=== PATIENT | male | born 1950 | race Caucasian/White ===

== ENCOUNTER 2025-06-04 12:05 | Inpatient (IN) | payer OTHER ==
[~2025-06-04] VITALS: Ht 172.7 cm; Wt 146.0 kg
[2025-06-04 12:59] LABS: BASOPHILS ABSOLUTE AUTO 0.06 K/mm3 (0.00-0.23); BASOPHILS PERCENT AUTO 1 % (0-2); EOSINOPHILS ABSOLUTE AUTO 0.07 K/mm3 (0.00-0.68); EOSINOPHILS PERCENT AUTO 1 % (0-6); Hematocrit 33.3 % (37.0-53.0); Hemoglobin 11.0 g/dL (13.5-17.5); IMMATURE GRAN ABSOLUTE AUTO 0.06 K/mm3 (0.00-0.10); IMMATURE GRAN PERCENT AUTO 1 % (0-1); LYMPHOCYTES ABSOLUTE AUTO 1.76 K/mm3 (0.84-5.20); LYMPHOCYTES PERCENT AUTO 15 % (21-46); MONOCYTES ABSOLUTE AUTO 0.92 K/mm3 (0.16-1.47); MONOCYTES PERCENT AUTO 8 % (4-13); Mean Corpuscular HGB Conc 33.0 g/dL (31.5-36.5); Mean Corpuscular Volume 97 fL (80-100); NEUTROPHILS ABSOLUTE AUTO 8.93 K/mm3 (1.96-9.15); NEUTROPHILS PERCENT AUTO 76 % (41-73); NRBC ABSOLUTE 0.00 K/mm3 (0.00-0.02); NRBC Auto 0.0 /100 WBC (0.0-0.2); Platelet Count 257 K/mm3 (150-400); RDW Coefficient Variation 12.9 % (11.7-14.2); RDW Standard Deviation 45.4 fL (35.1-46.3)
[2025-06-04 13:14] LABS: Alanine Aminotransfer (ALT/SGP 16.0 U/L (12-78); Albumin, Blood 3.0 g/dL (3.4-5.0); Albumin/Globulin Ratio 0.9 (0.8-1.8); Anion Gap 7.0 mmol/L (3-11); Aspartate Aminotrans (AST/SGOT 10.0 U/L (12-37); Bilirubin, Total 0.5 mg/dL (0.1-1.0); Blood Urea Nitrogen 23.0 mg/dL (8-24); CO2, Blood 25.0 mmol/L (21-32); Calcium, Blood 8.3 mg/dL (8.5-10.1); Chloride, Blood 110.0 mmol/L (98-108); Creatinine, Blood 2.13 mg/dL (0.60-1.20); Globulin, Blood 3.2 g/dL (2.2-4.0); Glucose, Blood 105.0 mg/dL (70-99); Potassium, Blood 4.1 mmol/L (3.5-5.5); Sodium, Blood 138.0 mmol/L (136-145); Total Protein, Blood 6.2 g/dL (6.4-8.2)
[2025-06-04] MEDS ORDERED: FLU VACC TS2025(65UP)/MF59C/PF 45 MCG/0.5 ML SYRINGE IM SCH (15:05)
[2025-06-04 17:12] VITALS: BP 142/77
[2025-06-04 19:23] VITALS: BP 129/73
--- NOTE | 2025-06-04 19:31 | NUR ---
PT ARRIVED VIA STRETCHER TO MEDICAL UNIT. PIVOT TRANSFER WITH FWW-NWB TO LEFT LEG. SPLIT NOTED TO LEFT LEG, CMS INTACT, DENIES PAIN AT TIME OF ARRIVAL. TELE ON, REGULAR DIET, CALL LIGHT USE INSTRUCTIONS GIVEN AND CALL FOR ASSISTANCE WHEN NEEDING TO USE RESTROOM. SCD'S ON, BED ALARM ON. URINAL AT BEDSIDE TO COLLECT UA. PT VERBALIZES UNDERSTANDING, ALERT AND ORIENTED X4.
[2025-06-05 00:43] VITALS: BP 152/84
[2025-06-05 01:52] LABS: Source, Urine Clean Catch
[2025-06-05 02:14] LABS: Bilirubin, Urine Neg (Neg); Glucose Qualitative, Urine Neg (Neg); Ketones, Urine Neg (Neg); Leukocyte Esterase, Urine 1+ (Neg); Protein, Urine 2+ (Neg); Specific Gravity, Urine 1.015 (1.003-1.022); Urobilinogen, Urine NORM (Normal)
[2025-06-05 02:22] LABS: Color, Urine Yellow (P-Yellow); Red Blood Cells, Urine 0-2 /hpf (0-2)
[2025-06-05 04:20] VITALS: BP 142/82
--- NOTE | 2025-06-05 04:54 | NUR ---
SHIFT SUMMARY PT A&Ox4 AND PLEASANT. LEFT LEG FX IN CAST. NO C/O PAIN DURING THE NIGHT. PT DID REPORT FEELING OF FULL BLADDER BUT UNABLE TO VOID. BLADDER SCAN SHOWED >500. HOSPITALIST NOTIFIED AND ORDERS GIVEN. PT WAS STRAIGHT CATHED AND 600mls DRAINED. VSS. NO EVENTS ON TELE. BED IN LOWEST POSITION AND CALL LIGHT IN REACH.
[2025-06-05 05:10] LABS: BASOPHILS ABSOLUTE AUTO 0.05 K/mm3 (0.00-0.23); BASOPHILS PERCENT AUTO 1 % (0-2); EOSINOPHILS ABSOLUTE AUTO 0.16 K/mm3 (0.00-0.68); EOSINOPHILS PERCENT AUTO 2 % (0-6); Hematocrit 32.9 % (37.0-53.0); Hemoglobin 10.9 g/dL (13.5-17.5); IMMATURE GRAN ABSOLUTE AUTO 0.04 K/mm3 (0.00-0.10); IMMATURE GRAN PERCENT AUTO 0 % (0-1); LYMPHOCYTES ABSOLUTE AUTO 2.24 K/mm3 (0.84-5.20); LYMPHOCYTES PERCENT AUTO 24 % (21-46); MONOCYTES ABSOLUTE AUTO 0.78 K/mm3 (0.16-1.47); MONOCYTES PERCENT AUTO 8 % (4-13); Mean Corpuscular HGB Conc 33.1 g/dL (31.5-36.5); Mean Corpuscular Volume 95 fL (80-100); NEUTROPHILS ABSOLUTE AUTO 6.06 K/mm3 (1.96-9.15); NEUTROPHILS PERCENT AUTO 65 % (41-73); NRBC ABSOLUTE 0.00 K/mm3 (0.00-0.02); NRBC Auto 0.0 /100 WBC (0.0-0.2); Platelet Count 252 K/mm3 (150-400); RDW Coefficient Variation 12.8 % (11.7-14.2); RDW Standard Deviation 44.0 fL (35.1-46.3)
[2025-06-05 05:34] LABS: Alanine Aminotransfer (ALT/SGP 15.0 U/L (12-78); Albumin, Blood 2.7 g/dL (3.4-5.0); Albumin/Globulin Ratio 0.9 (0.8-1.8); Anion Gap 9.0 mmol/L (3-11); Aspartate Aminotrans (AST/SGOT 8.0 U/L (12-37); Bilirubin, Total 0.5 mg/dL (0.1-1.0); Blood Urea Nitrogen 23.0 mg/dL (8-24); CO2, Blood 25.0 mmol/L (21-32); Calcium, Blood 8.0 mg/dL (8.5-10.1); Chloride, Blood 107.0 mmol/L (98-108); Creatinine, Blood 1.76 mg/dL (0.60-1.20); Globulin, Blood 3.0 g/dL (2.2-4.0); Glucose, Blood 99.0 mg/dL (70-99); Potassium, Blood 3.8 mmol/L (3.5-5.5); Sodium, Blood 137.0 mmol/L (136-145); Total Protein, Blood 5.7 g/dL (6.4-8.2)
[2025-06-05 08:09] VITALS: BP 142/85
[2025-06-05] MEDS ORDERED: Enoxaparin 40 MG/0.4 ML SYR SC SCH (09:00)
[2025-06-05] MEDS ORDERED: ASPI81CH PO (12:05)
[2025-06-05] MEDS ORDERED: ASCO500 PO (12:05)
[2025-06-05] MEDS ORDERED: AMLO10 PO (12:05)
[2025-06-05] MEDS ORDERED: BUSP10 PO (12:06)
[2025-06-05] MEDS ORDERED: VITAMIN D31000 UNI1 PO (12:06)
[2025-06-05] MEDS ORDERED: ARTIFICIAL TEAR15 M2 BOTHEYES (12:07)
[2025-06-05] MEDS ORDERED: B-121000 MC3 PO (12:07)
[2025-06-05] MEDS ORDERED: Voltaren100 GM TOP (12:08)
[2025-06-05] MEDS ORDERED: DULO30 PO (12:09)
[2025-06-05] MEDS ORDERED: FOLI1 PO (12:09)
[2025-06-05] MEDS ORDERED: FERSU300 PO (12:09)
[2025-06-05] MEDS ORDERED: Neurontin 300300 MG PO (12:10)
[2025-06-05] MEDS ORDERED: LISI20 PO (12:10)
[2025-06-05] MEDS ORDERED: PRAZ2 PO (12:11)
[2025-06-05] MEDS ORDERED: OMEP20ER PO (12:11)
[2025-06-05] MEDS ORDERED: TRAZ50 PO (12:13)
[2025-06-05] MEDS ORDERED: WEGOVY2.4 MG/0.7 SC (12:13)
[2025-06-05 14:55] LABS: Anion Gap 5.0 mmol/L (3-11); Blood Urea Nitrogen 20.0 mg/dL (8-24); CO2, Blood 29.0 mmol/L (21-32); Calcium, Blood 8.3 mg/dL (8.5-10.1); Chloride, Blood 108.0 mmol/L (98-108); Creatinine, Blood 1.74 mg/dL (0.60-1.20); Glucose, Blood 102.0 mg/dL (70-99); Potassium, Blood 4.0 mmol/L (3.5-5.5); Sodium, Blood 138.0 mmol/L (136-145)
[2025-06-05 16:37] VITALS: BP 163/90
--- NOTE | 2025-06-05 19:19 | NUR ---
SHIFT SUMMARY PT IS A/OX4. 1 PERSON ASSIST WITH FWW AND BOOT. NO ACUTE CHANGES THROUGHOUT THIS SHIFT. ON TELE RUNNING NORMAL SINUS RYTHYM IN THE 60'S. PT VOIDING INDEPENDENTLY USING THE URINAL AT BEDSIDE. PT IS COOPERATIVE WITH CARE AND CALLS APPROPRIATELY USING THE CALL LIGHT.
[2025-06-05 19:58] VITALS: BP 167/80
[2025-06-06 00:21] VITALS: BP 147/78
[2025-06-06 03:46] VITALS: BP 154/101
--- NOTE | 2025-06-06 04:53 | NUR ---
SHIFT SUMMARY PT A&Ox4 AND PLEASANT. PT'S SBP WAS ELEVATED AT 167. HOSPITALIST NOTIFIED AND HOME DOSE OF AMLODAPINE STARTED WITH GOOD EFFECT. NO C/O PAIN. EXPLAINED TO PT THAT LEFT LEG BOOT COULD BE REMOVED WHILE IN BED, BUT PT CHOSE TO KEEP BOOT ON DURING THE NIGHT. LR INFUSION COMPLETED PER ORDER. NO EVENTS ON TELE. PT HAD NO APPARENT DIFFICULTY VOIDING TONIGHT. ABLE TO SLEEP FOR SEVERAL HOURS AFTER HOME DOSE OF TRAZODONE GIVEN. BED IN LOWEST POSITION AND CALL LIGHT IN REACH.
[2025-06-06 05:16] LABS: BASOPHILS ABSOLUTE AUTO 0.06 K/mm3 (0.00-0.23); BASOPHILS PERCENT AUTO 1 % (0-2); EOSINOPHILS ABSOLUTE AUTO 0.22 K/mm3 (0.00-0.68); EOSINOPHILS PERCENT AUTO 3 % (0-6); Hematocrit 33.7 % (37.0-53.0); Hemoglobin 11.3 g/dL (13.5-17.5); IMMATURE GRAN ABSOLUTE AUTO 0.04 K/mm3 (0.00-0.10); IMMATURE GRAN PERCENT AUTO 1 % (0-1); LYMPHOCYTES ABSOLUTE AUTO 2.34 K/mm3 (0.84-5.20); LYMPHOCYTES PERCENT AUTO 27 % (21-46); MONOCYTES ABSOLUTE AUTO 0.77 K/mm3 (0.16-1.47); MONOCYTES PERCENT AUTO 9 % (4-13); Mean Corpuscular HGB Conc 33.5 g/dL (31.5-36.5); Mean Corpuscular Volume 94 fL (80-100); NEUTROPHILS ABSOLUTE AUTO 5.32 K/mm3 (1.96-9.15); NEUTROPHILS PERCENT AUTO 61 % (41-73); NRBC ABSOLUTE 0.00 K/mm3 (0.00-0.02); NRBC Auto 0.0 /100 WBC (0.0-0.2); Platelet Count 259 K/mm3 (150-400); RDW Coefficient Variation 12.5 % (11.7-14.2); RDW Standard Deviation 43.7 fL (35.1-46.3)
[2025-06-06 05:42] LABS: Anion Gap 8.0 mmol/L (3-11); Blood Urea Nitrogen 18.0 mg/dL (8-24); CO2, Blood 27.0 mmol/L (21-32); Calcium, Blood 8.8 mg/dL (8.5-10.1); Chloride, Blood 108.0 mmol/L (98-108); Creatinine, Blood 1.59 mg/dL (0.60-1.20); Glucose, Blood 96.0 mg/dL (70-99); Potassium, Blood 4.1 mmol/L (3.5-5.5); Sodium, Blood 139.0 mmol/L (136-145)
[2025-06-06 07:56] VITALS: BP 160/98
[2025-06-06 14:44] VITALS: BP 147/89
[2025-06-06 16:02] LABS: Anion Gap 9.0 mmol/L (3-11); Blood Urea Nitrogen 19.0 mg/dL (8-24); CO2, Blood 27.0 mmol/L (21-32); Calcium, Blood 8.9 mg/dL (8.5-10.1); Chloride, Blood 105.0 mmol/L (98-108); Creatinine, Blood 1.55 mg/dL (0.60-1.20); Glucose, Blood 97.0 mg/dL (70-99); Potassium, Blood 4.0 mmol/L (3.5-5.5); Sodium, Blood 137.0 mmol/L (136-145)
--- NOTE | 2025-06-06 19:14 | NUR ---
SHIFT SUMMARY PT IS A/OX4. SBA WITH FWW AND BOOT TO THE BATHROOM. NO ACUTE CHANGES THROUGHOUT THIS SHIFT. ON TELE RUNNING NORMAL SINUS RYTHYM. LR RUNNING @ 200 ML/HR. PT IS PLEASANT AND COOPERATIVE WITH CARE AND CALLS APPROPRIATELY USING THE CALL LIGHT.
[2025-06-06 20:56] VITALS: BP 166/89
[2025-06-07 04:40] VITALS: BP 154/89
[2025-06-07 05:00] LABS: BASOPHILS ABSOLUTE AUTO 0.06 K/mm3 (0.00-0.23); BASOPHILS PERCENT AUTO 1 % (0-2); EOSINOPHILS ABSOLUTE AUTO 0.23 K/mm3 (0.00-0.68); EOSINOPHILS PERCENT AUTO 2 % (0-6); Hematocrit 33.5 % (37.0-53.0); Hemoglobin 11.3 g/dL (13.5-17.5); IMMATURE GRAN ABSOLUTE AUTO 0.06 K/mm3 (0.00-0.10); IMMATURE GRAN PERCENT AUTO 1 % (0-1); LYMPHOCYTES ABSOLUTE AUTO 2.95 K/mm3 (0.84-5.20); LYMPHOCYTES PERCENT AUTO 27 % (21-46); MONOCYTES ABSOLUTE AUTO 0.98 K/mm3 (0.16-1.47); MONOCYTES PERCENT AUTO 9 % (4-13); Mean Corpuscular HGB Conc 33.7 g/dL (31.5-36.5); Mean Corpuscular Volume 94 fL (80-100); NEUTROPHILS ABSOLUTE AUTO 6.51 K/mm3 (1.96-9.15); NEUTROPHILS PERCENT AUTO 60 % (41-73); NRBC ABSOLUTE 0.00 K/mm3 (0.00-0.02); NRBC Auto 0.0 /100 WBC (0.0-0.2); Platelet Count 287 K/mm3 (150-400); RDW Coefficient Variation 12.4 % (11.7-14.2); RDW Standard Deviation 42.9 fL (35.1-46.3)
[2025-06-07 05:31] LABS: Anion Gap 8.0 mmol/L (3-11); Blood Urea Nitrogen 18.0 mg/dL (8-24); CO2, Blood 27.0 mmol/L (21-32); Calcium, Blood 8.5 mg/dL (8.5-10.1); Chloride, Blood 107.0 mmol/L (98-108); Creatinine, Blood 1.5 mg/dL (0.60-1.20); Glucose, Blood 94.0 mg/dL (70-99); Potassium, Blood 3.9 mmol/L (3.5-5.5); Sodium, Blood 138.0 mmol/L (136-145)
--- NOTE | 2025-06-07 05:47 | NUR ---
SHIFT SUMMARY PT IS A&OX4, PLEASANT AND COOPERATIVE WITH CARE. PT DENIED PAIN THIS SHIFT. PT REPORTED HAVING A DIFFICULT TIME SLEEPING. NO ACUTE CHANGES THIS SHIFT. PT RESTED WITH EVEN AND UNLABORED RESPIRATIONS, BED IN THE LOWEST POSITION, AND CALL LIGHT WITHIN REACH.
[2025-06-07 07:25] VITALS: BP 156/92
--- NOTE | 2025-06-07 09:00 | NUR ---
pt laying in bed watching tv, a/ox4, pleasant and cooperative with care, follows commands well, denies pain, states he can't sleep here and is ready to go home, lungs are clear in upper quinonez, dim in bases, resp even and unlabored, no cough noted, hrr, tele in place running sr to st with bbb, pvc's, no edema noted, ppp+1, cap refill<3 sec, vs stable, afebrile, piv to lac site is clear and patent, btx4, abd round soft nontender, voids with out diff, skin c/w/d, has boot on left leg for tx to fib, michelle vega, call light in reach.
[2025-06-07 11:37] VITALS: BP 163/89
--- NOTE | 2025-06-07 12:35 | NUR ---
PT HAS BEEN DISCHARGED TO HOME, [facility] TO PICK HIM UP, PIV REMOVED INTACT, WENT OVER INSTRUCTIONS WITH HIM, HE VERBALIZED UNDERSTANDING, LEFT VIA WHEELCHAIR WITH [employer] PUBL[employer]ER IN ATTENDENCE WITH ALL HIS BELONGINGS.
== END 2025-06-07 12:30 | disposition home or self-care (01) | DRG 563 ==
LOC: ER 12:05 → MEDS 15:01 → ENPENDDIS 06-07 11:07 → MEDS 06-07 12:30
PROVIDERS: Emergency Medicine; ADMIT Family Medicine
DX: S82.832A Other fracture of upper and lower end of left fibula, initial encounter for closed fracture (principal); N17.9 Acute kidney failure, unspecified; Z68.43 Body mass index [BMI] 50.0-59.9, adult; F43.10 Post-traumatic stress disorder, unspecified; J44.9 Chronic obstructive pulmonary disease, unspecified; F43.21 Adjustment disorder with depressed mood; K21.9 Gastro-esophageal reflux disease without esophagitis; G62.9 Polyneuropathy, unspecified; S93.492A Sprain of other ligament of left ankle, initial encounter; G47.33 Obstructive sleep apnea (adult) (pediatric); E66.01 Morbid (severe) obesity due to excess calories; R55 Syncope and collapse; M19.90 Unspecified osteoarthritis, unspecified site; D64.9 Anemia, unspecified; Z23 Encounter for immunization; Z88.5 Allergy status to narcotic agent; Z86.73 Personal history of transient ischemic attack (TIA), and cerebral infarction without residual deficits; Z79.899 Other long term (current) drug therapy; W01.0XXA Fall on same level from slipping, tripping and stumbling without subsequent striking against object, initial encounter
CPT/HCPCS: 29505; 36415; 73590; 73610; 80048; 80053; 81001; 82570; 83880; 83930; 83935; 84300; 84484; 85025; 93005; 93010; 97110; 97161; 97530; 99285-25; A9270; J1650; J7120